=== PATIENT | female | born 1945 | race Caucasian/White ===

== ENCOUNTER → 2016-09-05 | Outpatient (CLI) | payer MEDICARE, MEDICAID ==
[~2016-09-05] MED LIST: ACETAMINOPHEN W1 TA6 PO; ADVAIR IH; ALEVE 220MG220 MG PO; APRESOLINE 25MG25 MG PO; ASPI81TA PO; ASPIR-LOW81 MG PO; ASPIRIN E.C. 8181 MG PO; ATIVAN PO; B-12-SL1000 MCG SL; CALCIUM 600MG+D1 TAB PO; CARDENE 20MG CA20 M1 PO; CARDENE 20MG CA20 MG PO; CORDARONE200 MG/TAB PO; CRESTOR; FLEXERIL10 MG PO; FLEXERIL5 MG PO; INDOMETHACIN25 MG PO; K-DUR 10 MEQ T10 MEQ PO; KLONOPIN 0.5MG0.5 MG PO; LASIX 20MG TABL20 MG PO; LIPITOR20 MG PO; LOPRESSOR 225 MG/TAB PO; LORTAB 2.5/5001 TAB PO; METOPROLOL25 MG PO; MVI; NATURAL E400 IU PO; NIFEDIPINE20 MG PO; NITRO-DUR0.1 MG/PAT TD; NITROQUICK0.4 MG SL; NORCO 325 MG-51 TAB PO; OMEPRAZOLE20 MG PO; OMNICEF 300MG300 MG PO; PHENERGAN 25 TA25 MG PO; PREDNISONE10 MG PO; PRILOSEC 20MG20 MG PO; PRILOSEC PO; PROAIR HFA0.09 MG/AC IH; RANEXA500 MG PO; RT ADVAIR 228 DISKUS IH; SINGULAIR 110 MG/TAB PO; SYNTHROID 0.0.025 MG PO; ULTRAM 50MG TAB50 MG PO; VASOTEC PO; VENTOLIN0.09 MG IH; VITAMIN C500 MG PO; VITAMIN D; VITAMIN D1000 IU PO; VITAMIN D32000 I1 PO; VITAMINC500CH PO; VOLTAREN GEL 1%1 TU TP
== END ==
LOC: COL.PUL 07:41
DX: R06.02 Shortness of breath (principal)

== ENCOUNTER → 2016-09-19 | Outpatient (CLI) | payer MEDICARE, MEDICAID | LOC: COL.RAD 09:03 | DX: R06.02 Shortness of breath (principal); R91.8 Other nonspecific abnormal finding of lung field; I51.7 Cardiomegaly | CPT/HCPCS: Q9967 ==

== ENCOUNTER → 2016-09-23 | Outpatient (CLI) | payer MEDICARE, MEDICAID | LOC: COL.VAS 11:11 | DX: R06.09 Other forms of dyspnea (principal); I08.1 Rheumatic disorders of both mitral and tricuspid valves; I27.0 Primary pulmonary hypertension ==

== ENCOUNTER 2016-10-24 11:20 | Outpatient (CLI) | payer MEDICARE, MEDICAID ==
[2016-10-24] VITALS (14 sets, daily range): BP systolic 104–136; BP diastolic 57–95; PULSE 51–68
[~2016-10-24] VITALS: Ht 160 cm; Wt 38.0 kg
[~2016-10-24 11:20] MED LIST changes: -APRESOLINE 25MG25 MG PO; -CALCIUM 600MG+D1 TAB PO; -CORDARONE200 MG/TAB PO; -K-DUR 10 MEQ T10 MEQ PO; -LASIX 20MG TABL20 MG PO; -NITRO-DUR0.1 MG/PAT TD; -OMNICEF 300MG300 MG PO; -PHENERGAN 25 TA25 MG PO; -PREDNISONE10 MG PO; -RT ADVAIR 228 DISKUS IH; -SYNTHROID 0.0.025 MG PO; -ULTRAM 50MG TAB50 MG PO; -VITAMINC500CH PO
[2016-10-24] MEDS ORDERED: OMNICEF 300MG300 MG PO (12:12)
[2016-10-24] MEDS ORDERED: PREDNISONE10 MG PO (12:13)
[2016-10-24] MEDS ORDERED: PROAIR HFA0.09 MG/AC IH (12:14)
[2016-10-24] MEDS ORDERED: PHENERGAN 25 TA25 MG PO (12:23)
[2016-10-24] MEDS ORDERED: SYNTHROID 0.0.025 MG PO (12:23)
[2016-10-24 12:24] LABS: MEAN CELL VOLUME 87 fl (80.0-100.0); MEAN CORPUSCULAR HGB CONC 32 g/dl (33.0-37.0); MEAN PLATELET VOLUME 9.9 fl (7.4-10.4); PLATELET COUNT 199 K/mm3 (130-400); RED BLOOD COUNT 3.92 M/mm3 (4.10-5.30); REDCELL DISTRIBUTION WIDTH-CV 15.2 % (11.5-14.5); WHITE BLOOD COUNT 3.7 K/mm3 (4.8-10.8)
[2016-10-24] MEDS ORDERED: ULTRAM 50MG TAB50 MG PO (12:24)
[2016-10-24] MEDS ORDERED: VITAMINC500CH PO (12:26)
[2016-10-24 12:27] LABS: HEMATOCRIT 33.9 % (37.0-47.0); MEAN CORPUSCULAR HEMOGLOBIN 28 pg (27.0-31.0)
[2016-10-24] MEDS ORDERED: K-DUR 10 MEQ T10 MEQ PO (12:27)
[2016-10-24] MEDS ORDERED: NITRO-DUR0.1 MG/PAT TD (12:28)
[2016-10-24] MEDS ORDERED: LASIX 20MG TABL20 MG PO (12:28)
[2016-10-24] MEDS ORDERED: RT ADVAIR 228 DISKUS IH (12:29)
[2016-10-24] MEDS ORDERED: CALCIUM 600MG+D1 TAB PO (12:30)
[2016-10-24] MEDS ORDERED: CORDARONE200 MG/TAB PO (12:30)
[2016-10-24 12:37] LABS: CALCIUM 9.3 mg/dL (8.4-10.2); CREATININE, serum 1.13 mg/dL (0.52-1.25)
[2016-10-24 12:38] LABS: INR 1.3 (0.8-3.0)
[2016-10-24] MEDS ORDERED: APRESOLINE 25MG25 MG PO (15:07)
== END 2016-10-24 15:53 | disposition home or self-care (01) ==
LOC: COL.RAD 11:20
PROVIDERS: Internal Medicine Cardiovascular Disease
DX: I08.0 Rheumatic disorders of both mitral and aortic valves (principal); R06.00 Dyspnea, unspecified; E78.5 Hyperlipidemia, unspecified; I10 Essential (primary) hypertension; G47.33 Obstructive sleep apnea (adult) (pediatric); J45.909 Unspecified asthma, uncomplicated; Z79.899 Other long term (current) drug therapy; Z79.82 Long term (current) use of aspirin; Z87.891 Personal history of nicotine dependence; I48.0 Paroxysmal atrial fibrillation
CPT/HCPCS: J2175; J2250

== ENCOUNTER 2017-01-23 14:49 | Emergency (ER) | payer MEDICARE, MEDICAID ==
[~2017-01-23] VITALS: Ht 160 cm; Wt 81.8 kg
[~2017-01-23 14:49] MED LIST changes: +APRESOLINE 25MG25 MG PO; +CALCIUM 600MG+D1 TAB PO; +CORDARONE200 MG/TAB PO; +K-DUR 10 MEQ T10 MEQ PO; +LASIX 20MG TABL20 MG PO; +NITRO-DUR0.1 MG/PAT TD; +OMNICEF 300MG300 MG PO; +PHENERGAN 25 TA25 MG PO; +PREDNISONE10 MG PO; +RT ADVAIR 228 DISKUS IH; +SYNTHROID 0.0.025 MG PO; +ULTRAM 50MG TAB50 MG PO; +VITAMINC500CH PO
[2017-01-23 14:53] VITALS: TEMP 98
[2017-01-23 15:34] LABS: BASO % 0.4 % (0.0-2.0); EOS # 0.1 (0.0-0.7); EOS % 1.3 % (0-4.0); GRAN # 2.8 (1.4-6.5); GRAN % 59.4 % (42.2-75.2); HEMOGLOBIN 12.4 g/dl (12.5-16.0); LYMPH # 1.3 (1.2-3.4); LYMPH % 26.7 % (20.0-51.0); MEAN CELL VOLUME 85 fl (80.0-100.0); MEAN CORPUSCULAR HEMOGLOBIN 28 pg (27.0-31.0); MEAN CORPUSCULAR HGB CONC 33 g/dl (33.0-37.0); MEAN PLATELET VOLUME 10.1 fl (7.4-10.4); MONO # 0.6 (0.1-0.6); PLATELET COUNT 214 K/mm3 (130-400); RED BLOOD COUNT 4.47 M/mm3 (4.10-5.30); REDCELL DISTRIBUTION WIDTH-CV 16.1 % (11.5-14.5); WHITE BLOOD COUNT 4.8 K/mm3 (4.8-10.8)
[2017-01-23 15:46] LABS: CALCIUM 9.6 mg/dL (8.4-10.2); CREATININE, serum 1.2 mg/dL (0.52-1.25)
[2017-01-23 16:09] LABS: POTASSIUM 4.2 mmol/L (3.4-5.0)
[2017-01-23 17:12] VITALS: BP 122/61; PULSE 64
== END 2017-01-23 17:15 | disposition home or self-care (01) ==
LOC: COL.ER 14:49
PROVIDERS: Emergency Medicine
DX: M54.2 Cervicalgia (principal); I10 Essential (primary) hypertension; J45.909 Unspecified asthma, uncomplicated; Z87.891 Personal history of nicotine dependence; Z90.49 Acquired absence of other specified parts of digestive tract; Z90.710 Acquired absence of both cervix and uterus; Z90.89 Acquired absence of other organs; Z86.79 Personal history of other diseases of the circulatory system; Z79.82 Long term (current) use of aspirin
CPT/HCPCS: J7040; Q9967

== ENCOUNTER → 2017-02-12 | Outpatient (CLI) | payer MEDICARE, MEDICAID | LOC: COL.RAD 09:37 | DX: R51 Headache (principal); R00.1 Bradycardia, unspecified | CPT/HCPCS: A9585 ==

== ENCOUNTER 2017-03-06 14:45 | Outpatient (RCR) | payer MEDICARE, MEDICAID | END 2017-04-01 12:53 | LOC: MKS.ESL.PT 14:45 | DX: H81.13 Benign paroxysmal vertigo, bilateral (principal) | CPT/HCPCS: G8990-GP; G8991-GP ==

== ENCOUNTER 2017-07-24 09:32 | Day surgery (SDC) | payer MEDICARE, MEDICAID ==
[2017-07-24] VITALS (11 sets, daily range): BP systolic 103–127; BP diastolic 48–67; PULSE 49–86; TEMP 98.1
[~2017-07-24] VITALS: Ht 160 cm; Wt 82.6 kg
[2017-07-24] MEDS ORDERED: LIORESAL 1010 MG/TAB PO (10:37)
[2017-07-24] MEDS ORDERED: LEXAPRO 10MG10 MG PO (10:38)
[2017-07-24 10:44] LABS: HEMATOCRIT 34.3 % (37.0-47.0); HEMOGLOBIN 11.3 g/dl (12.5-16.0); MEAN CELL VOLUME 86 fl (80.0-100.0); MEAN CORPUSCULAR HEMOGLOBIN 28 pg (27.0-31.0); MEAN CORPUSCULAR HGB CONC 33 g/dl (33.0-37.0); MEAN PLATELET VOLUME 9.6 fl (7.4-10.4); PLATELET COUNT 181 K/mm3 (130-400); RED BLOOD COUNT 4.01 M/mm3 (4.10-5.30); REDCELL DISTRIBUTION WIDTH-CV 14.9 % (11.5-14.5)
[2017-07-24 10:49] LABS: INR 1.2 (0.8-3.0); PROTHROMBIN TIME 13.9 SECONDS (9.7-12.8)
[2017-07-24 10:57] LABS: ALBUMIN 4.1 gm/dL (3.5-5.0); BILIRUBIN,TOTAL 0.5 mg/dL (0.0-1.0); CALCIUM 9.4 mg/dL (8.4-10.2); CREATININE, serum 1.12 mg/dL (0.52-1.25); POTASSIUM 4.2 mmol/L (3.4-5.0); TOTAL PROTEIN 7.7 gm/dL (6.4-8.2)
== END 2017-07-24 16:55 | disposition home or self-care (01) ==
LOC: COL.CAR 09:32
PROVIDERS: Internal Medicine Cardiovascular Disease
DX: I27.20 Pulmonary hypertension, unspecified (principal); I08.1 Rheumatic disorders of both mitral and tricuspid valves; E78.5 Hyperlipidemia, unspecified; I10 Essential (primary) hypertension; J45.909 Unspecified asthma, uncomplicated; I48.0 Paroxysmal atrial fibrillation; G47.33 Obstructive sleep apnea (adult) (pediatric); E66.9 Obesity, unspecified; Z68.32 Body mass index [BMI] 32.0-32.9, adult; Z90.49 Acquired absence of other specified parts of digestive tract; Z90.710 Acquired absence of both cervix and uterus; Z88.8 Allergy status to other drugs, medicaments and biological substances; Z79.82 Long term (current) use of aspirin; Z87.891 Personal history of nicotine dependence; Z82.49 Family history of ischemic heart disease and other diseases of the circulatory system
CPT/HCPCS: J0153; J2250; J3010; Q9967

== ENCOUNTER → 2017-08-01 | Outpatient (CLI) | payer MEDICARE, MEDICAID ==
[~2017-08-01] MED LIST changes: +LEXAPRO 10MG10 MG PO; +LIORESAL 1010 MG/TAB PO
== END ==
LOC: MC.RAD 13:40
DX: Z12.31 Encounter for screening mammogram for malignant neoplasm of breast (principal)

== ENCOUNTER → 2018-04-14 | Outpatient (CLI) | payer MEDICARE, MEDICAID | LOC: COL.VAS 09:38 | DX: I27.20 Pulmonary hypertension, unspecified (principal) ==

== ENCOUNTER → 2018-04-15 | Outpatient (CLI) | payer MEDICARE, MEDICAID | LOC: COL.RAD 10:05 | DX: K21.9 Gastro-esophageal reflux disease without esophagitis (principal); K22.8 Other specified diseases of esophagus; M25.78 Osteophyte, vertebrae ==

== ENCOUNTER 2018-05-08 14:42 | Day surgery (SDC) | payer MEDICARE, MEDICAID ==
[~2018-05-08] VITALS: Ht 157.5 cm; Wt 83.5 kg
[2018-05-08] MEDS ORDERED: COZAAR 50MG50 MG/TAB PO (15:03)
[2018-05-08] MEDS ORDERED: LASIX 40MG TABL40 MG PO (15:04)
[2018-05-08] MEDS ORDERED: APRESOLINE 25MG25 MG PO (15:04)
[2018-05-08] MEDS ORDERED: K-DUR 10 MEQ T10 MEQ PO (15:05)
[2018-05-08] MEDS ORDERED: VITAMINE200 PO (15:06)
[2018-05-08] MEDS ORDERED: MULTI VITAMINS1 TAB PO (15:06)
[2018-05-08] MEDS ORDERED: LIORESAL 1010 MG/TAB PO (15:06)
[2018-05-08] MEDS ORDERED: LEXAPRO 10MG10 MG PO (15:07)
[2018-05-08] MEDS ORDERED: SYNTHROID0.075 MG/T PO (15:07)
[2018-05-08] MEDS ORDERED: ALEVE 220MG220 MG PO (15:08)
[2018-05-08] MEDS ORDERED: 00186-0372-20 IH (15:09)
[2018-05-08] MEDS ORDERED: VENTOLIN0.09 MG IH (15:09)
[2018-05-08] MEDS ORDERED: LOPRESSOR 550 MG/TAB PO (15:10)
[2018-05-08] MEDS ORDERED: RT ADVAIR 128 DISKUS IH (15:10)
[2018-05-08] MEDS ORDERED: SINGULAIR 110 MG/TAB PO (15:10)
[2018-05-08] MEDS ORDERED: PRILOSEC 20MG20 MG PO (15:11)
[2018-05-08] MEDS ORDERED: MASON NATURAL2000 IU PO (15:11)
[2018-05-08 15:12] VITALS: BP 132/68; PULSE 58; TEMP 98
[2018-05-08] MEDS ORDERED: ASPIRIN 81M81 MG/TA2 PO (15:12)
[2018-05-08] MEDS ORDERED: NORVASC 5MG5 MG/TAB PO (15:12)
[2018-05-08 16:05] VITALS: BP 119/71; PULSE 65; TEMP 98.4
[2018-05-08 16:20] VITALS: BP 119/87; PULSE 61
== END 2018-05-08 16:37 | disposition home or self-care (01) ==
LOC: SDCO 14:42
DX: K22.2 Esophageal obstruction (principal); K21.0 Gastro-esophageal reflux disease with esophagitis; I20.9 Angina pectoris, unspecified; I10 Essential (primary) hypertension; K44.9 Diaphragmatic hernia without obstruction or gangrene; E78.00 Pure hypercholesterolemia, unspecified; Z79.899 Other long term (current) drug therapy; Z79.82 Long term (current) use of aspirin; J45.909 Unspecified asthma, uncomplicated; E03.9 Hypothyroidism, unspecified; G89.29 Other chronic pain; F32.9 Major depressive disorder, single episode, unspecified
CPT/HCPCS: C1726; J7120

== ENCOUNTER 2018-09-29 21:06 | Emergency (ER) | payer MEDICARE, MEDICAID ==
[~2018-09-29] VITALS: Ht 154.9 cm; Wt 84.1 kg
[~2018-09-29 21:06] MED LIST changes: +00186-0372-20 IH; +ASPIRIN 81M81 MG/TA2 PO; +COZAAR 50MG50 MG/TAB PO; +LASIX 40MG TABL40 MG PO; +LOPRESSOR 550 MG/TAB PO; +MASON NATURAL2000 IU PO; +MULTI VITAMINS1 TAB PO; +NORVASC 5MG5 MG/TAB PO; +RT ADVAIR 128 DISKUS IH; +SYNTHROID0.075 MG/T PO; +VITAMINE200 PO
[2018-09-29 21:17] VITALS: TEMP 97.9
[2018-09-29 21:45] LABS: BASO % 0.3 % (0.0-2.0); EOS # 0.1 (0.0-0.7); EOS % 0.9 % (0-4.0); GRAN # 5.3 (1.4-6.5); GRAN % 69.2 % (42.2-75.2); HEMATOCRIT 32.8 % (37.0-47.0); HEMOGLOBIN 10.4 g/dl (12.5-16.0); LYMPH # 1.5 (1.2-3.4); LYMPH % 18.8 % (20.0-51.0); MEAN CELL VOLUME 87 fl (80.0-100.0); MEAN CORPUSCULAR HEMOGLOBIN 28 pg (27.0-31.0); MEAN CORPUSCULAR HGB CONC 32 g/dl (33.0-37.0); MONO # 0.8 (0.1-0.6); MONO % 10.4 % (1.7-9.3); PLATELET COUNT 192 K/mm3 (130-400); RED BLOOD COUNT 3.77 M/mm3 (4.10-5.30); REDCELL DISTRIBUTION WIDTH-CV 14.7 % (11.5-14.5)
[2018-09-29 21:56] LABS: ALANINE AMINOTRANSFERASE < 6 U/L (9-52); ALBUMIN 3.8 gm/dL (3.5-5.0); ALKALINE PHOSPHATASE 66 U/L (50-136); ANION GAP 8 mmol/L (7-16); AST,SGOT 15 U/L (15-37); BILIRUBIN,TOTAL 0.4 mg/dL (0.0-1.0); BLOOD UREA NITROGEN 24 mg/dL (7-17); CALCIUM 8.9 mg/dL (8.4-10.2); CARBON DIOXIDE 27 mmol/L (22-30); CHLORIDE 103 mmol/L (98-107); CREATININE, serum 1.34 (0.52-1.25); GLUCOSE 87 mg/dL (74-106); POTASSIUM 3.8 mmol/L (3.4-5.0); SODIUM 138 mmol/L (137-145); TOTAL PROTEIN 7.1 gm/dL (6.4-8.2)
[2018-09-29 22:05] LABS: INR 1.2 (0.8-3.0); PROTHROMBIN TIME 13.7 SECONDS (9.7-12.8)
[2018-09-29 22:11] LABS: TROPONIN-I < 0.012 ng/mL (0.000-0.035)
[2018-09-30 02:00] VITALS: BP 109/60; PULSE 62
== END 2018-09-30 02:15 | disposition home or self-care (01) ==
LOC: COL.ER 21:06
PROVIDERS: Emergency Medicine
DX: E86.0 Dehydration (principal); R07.89 Other chest pain; Z90.710 Acquired absence of both cervix and uterus; Z79.82 Long term (current) use of aspirin; Z95.9 Presence of cardiac and vascular implant and graft, unspecified
CPT/HCPCS: J7030

== ENCOUNTER 2019-01-08 13:43 | Emergency (ER) | payer MEDICARE, MEDICAID ==
[~2019-01-08] VITALS: Ht 152.4 cm; Wt 82.3 kg
[2019-01-08 14:47] VITALS: TEMP 98.9
[2019-01-08 15:03] LABS: BASO % 0.2 % (0.0-2.0); EOS # 0.1 (0.0-0.7); EOS % 0.8 % (0-4.0); GRAN # 4.4 (1.4-6.5); GRAN % 72.1 % (42.2-75.2); LYMPH # 0.9 (1.2-3.4); LYMPH % 15.4 % (20.0-51.0); MEAN CELL VOLUME 89 fl (80.0-100.0); MEAN CORPUSCULAR HGB CONC 31 g/dl (33.0-37.0); MEAN PLATELET VOLUME 9.8 fl (7.4-10.4); MONO # 0.7 (0.1-0.6); PLATELET COUNT 141 K/mm3 (130-400); REDCELL DISTRIBUTION WIDTH-CV 17.2 % (11.5-14.5)
[2019-01-08 15:07] LABS: HEMATOCRIT 28.4 % (37.0-47.0); HEMOGLOBIN 8.8 g/dl (12.5-16.0); MEAN CORPUSCULAR HEMOGLOBIN 28 pg (27.0-31.0)
[2019-01-08] MEDS ORDERED: CORDARONE200 MG/TAB PO (15:11)
[2019-01-08 15:13] LABS: ALBUMIN 3.4 gm/dL (3.5-5.0); BILIRUBIN,TOTAL 0.5 mg/dL (0.0-1.0); CALCIUM 8.4 mg/dL (8.4-10.2); CREATININE, serum 1.17 (0.52-1.25); POTASSIUM 3.5 mmol/L (3.4-5.0); TOTAL PROTEIN 6.8 gm/dL (6.4-8.2)
[2019-01-08] MEDS ORDERED: BUMEX 1MG TA1 MG/TA1 PO (15:14)
[2019-01-08] MEDS ORDERED: COUMADIN 2MG2 MG/TAB PO (15:14)
[2019-01-08] MEDS ORDERED: K-DUR20 MEQ PO (15:15)
[2019-01-08] MEDS ORDERED: ULTRAM 50MG TAB50 MG PO (15:16)
[2019-01-08] MEDS ORDERED: MELATONIN5 M1 PO (15:17)
[2019-01-08] MEDS ORDERED: PHENERGAN 25 TA25 MG PO (15:18)
[2019-01-08] MEDS ORDERED: VITAMIN D32000 I1 PO (15:18)
[2019-01-08] MEDS ORDERED: SENNA-S 50 MG-81 TAB PO (15:19)
[2019-01-08] MEDS ORDERED: DOXYCYCLINE 10100 MG PO (15:24)
[2019-01-08 16:02] LABS: INR 1.7 (0.8-3.0); PROTHROMBIN TIME 19.8 SECONDS (9.7-12.8)
[2019-01-08] MEDS ORDERED: ZOFRAN ODT4 MG PO (16:57)
[2019-01-08] MEDS ORDERED: NORCO 325 MG-51 TAB PO (16:58)
[2019-01-08 17:04] VITALS: BP 108/49; PULSE 57
== END 2019-01-08 17:04 | disposition home or self-care (01) ==
LOC: COL.ER 13:43
PROVIDERS: Family Medicine
DX: L76.82 Other postprocedural complications of skin and subcutaneous tissue (principal); L03.313 Cellulitis of chest wall; D64.9 Anemia, unspecified; Z79.82 Long term (current) use of aspirin; Z79.01 Long term (current) use of anticoagulants; Z95.5 Presence of coronary angioplasty implant and graft